=== PATIENT | male | born 1985 | race Caucasian/White ===

== ENCOUNTER → 2021-09-07 10:04 | Outpatient (CLI) | payer OTHER, SELFPAY ==
[2021-09-07 13:05] LABS: Prolactin 16.3 ng/mL (3.7-17.9)
[2021-09-07 16:35] LABS: Follicle Stimulating Hormone 7.96 mIU/mL; Luteinizing Hormone 3.22 mIU/mL
== END ==
PROVIDERS: Referring Provider Specialist; Visit Provider Specialist
DX: R86.8 Other abnormal findings in specimens from male genital organs (principal)
CPT/HCPCS: 36415; 83001; 83002; 84146; 84402; 84403

== ENCOUNTER → 2022-05-09 11:01 | Outpatient (CLI) | payer OTHER, SELFPAY ==
--- NOTE | 2022-05-09 11:03 | DI.US.S_ITS ---
PROCEDURE: US SCROTUM INDICATIONS: Infertility TECHNIQUE: Real-time scanning was performed of the scrotum and testicles, with image documentation. Color and pulse Doppler interrogation was performed of both testicles. COMPARISON: None. FINDINGS: Right: Testicle is normal in size at 4.3 x 2.2 x 1.6 cm, and homogenous in echotexture. Epididymis demonstrates multiple areas of decreased echogenicity the largest measuring 8 mm. No hydrocele. Prominence of scrotal vessels with Valsalva. Overlying scrotal skin is normal in thickness. Left: Testicle is normal in size at 3.4 x 1.9 x 1.5 cm, and homogeneous in echotexture. Epididymis demonstrates multiple areas of decreased echogenicity the largest measuring 3 mm. No hydrocele. There is prominence of scrotal vessels with Valsalva.. Overlying scrotal skin is normal in thickness. Doppler: Color and pulse Doppler demonstrate normal and symmetric arterial flow in both testicles. IMPRESSION: Increased vascularity bilaterally with Valsalva suggestive of varicoceles. Bilateral epididymal cysts. Dictated by: Emelia Harrison M.D. on 05/09/2022 at 16:46 Approved by: Emelia Harrison M.D. on 05/09/2022 at 16:48
== END ==
PROVIDERS: Referring Provider Specialist; Visit Provider Specialist
DX: R86.8 Other abnormal findings in specimens from male genital organs (principal); N46.9 Male infertility, unspecified; N50.3 Cyst of epididymis
CPT/HCPCS: 76870

== ENCOUNTER → 2022-05-25 07:23 | Outpatient (CLI) | payer OTHER, SELFPAY ==
[2022-05-25 09:24] LABS: Prolactin 21.7 ng/mL (3.7-17.9)
[2022-05-25 09:41] LABS: Luteinizing Hormone 3.61 mIU/mL
[2022-06-04 00:07] LABS: Testosterone % Fr + Wkly bound 19.6 % (9.0-46.0); Testosterone Fr+Wkly bound 65.4 ng/dL (40.0-250.0); Testosterone, Total 333.5 ng/dL (264.0-916.0)
== END ==
PROVIDERS: Referring Provider Specialist; Visit Provider Specialist
DX: N46.9 Male infertility, unspecified (principal)
CPT/HCPCS: 36415; 83001; 83002; 84146; 84403

== ENCOUNTER → 2022-06-06 08:26 | Outpatient (CLI) | payer OTHER, SELFPAY ==
[2022-06-06 11:40] LABS: Prolactin 13.5 ng/mL (3.7-17.9)
== END ==
PROVIDERS: Referring Provider Specialist; Visit Provider Specialist
DX: N46.9 Male infertility, unspecified (principal)
CPT/HCPCS: 36415; 84146; 99215

== ENCOUNTER → 2022-09-17 08:27 | Outpatient (CLI) | payer OTHER, SELFPAY ==
[2022-09-17 09:19] LABS: Follicle Stimulating Hormone 13.2 mIU/mL
[2022-09-17 09:34] LABS: Testosterone 326 ng/dL (132-813)
[2022-09-19 21:08] LABS: Estrogen 97 pg/mL (56-213)
== END ==
PROVIDERS: Referring Provider Urology; Visit Provider Urology
DX: N46.9 Male infertility, unspecified (principal)
CPT/HCPCS: 36415; 82672; 83001; 83002; 84403